=== PATIENT | female | born 1970 | race Caucasian/White ===

== ENCOUNTER → 2017-12-24 13:10 | Outpatient (POV) | payer BC, SELFPAY | PROVIDERS: Visit Provider Physician Assistant | DX: Z00.00 Encounter for general adult medical examination without abnormal findings (principal) ==

== ENCOUNTER → 2018-10-30 15:59 | Outpatient (CLI) | payer BC, SELFPAY ==
--- NOTE | 2018-10-30 16:02 | MM_ITS ---
MM Dig screening mamm BI w/CAD CAD Screening COMPARISON: Digital mammograms with CAD 08/24/2015 and 12/13/2016 INDICATION: There is been previous breast reduction surgery bilaterally. There is no personal or family history of breast cancer TECHNIQUE: Standard CC and MLO images were obtained. R2 CAD reviewed. FINDINGS: Moderate scattered fiber glandular densities are seen in both breast primarily upper outer quadrants. There is no suspicious lesion and no suspicious microcalcifications. IMPRESSION: Fibrofatty parenchyma no suspicious lesion seen BI-RADS Category: 1 Negative RECOMMENDED FOLLOW-UP: 1YR - 1 YEAR FOLLOW-UP (A letter has been sent to the patient regarding results of the study.)
== END ==
PROVIDERS: PCP Internal Medicine Adolescent Medicine; Visit Provider Obstetrics & Gynecology
DX: Z12.31 Encounter for screening mammogram for malignant neoplasm of breast (principal)
CPT/HCPCS: 77067

== ENCOUNTER → 2018-12-26 12:47 | Outpatient (CLI) | payer BC, SELFPAY ==
--- NOTE | 2018-12-26 12:55 | XR_ITS ---
XR DEXA axial skeleton HISTORY: ITS.REASON: SCREENING ORDERING PHYSICIAN: Herbert Fernandez MD PATIENT AGE: 48 years COMPARISON: None FINDINGS: The BMD measured at the AP Spine L1-L4 is 1.131 g/cm squared with a T score of -0.4. This is considered Normal according to the World Health Organization criteria. Fracture risk is Low. Treatment is advised. Main hip density has a T score of 0.8 which is within normal limits. IMPRESSION: Normal bone density with low fracture risk. Recommend follow-up exam December 2020
== END ==
PROVIDERS: PCP Internal Medicine Adolescent Medicine; Visit Provider Obstetrics & Gynecology
DX: Z78.0 Asymptomatic menopausal state (principal)
CPT/HCPCS: 77080

== ENCOUNTER → 2018-12-31 15:35 | Outpatient (POV) | payer BC, SELFPAY | PROVIDERS: Visit Provider Dermatology | DX: Z00.00 Encounter for general adult medical examination without abnormal findings (principal) ==

== ENCOUNTER → 2020-03-18 10:39 | Outpatient (CLI) | payer OTHER, BC, SELFPAY ==
--- NOTE | 2020-03-18 10:44 | XR_ITS ---
PROCEDURE: XR HAND RT MIN 3V CLINICAL INDICATION: RT THUMB PAIN COMPARISON: No exams were available for comparison FINDINGS: No fracture or dislocation. No lytic or blastic change. There is normal mineralization. The joint spaces are well-preserved. No significant degenerative/arthritic changes. No erosive changes evident. Other findings:None. IMPRESSION: No acute findings. Dictated b Damián Mckeon MD 03/18/2020 11:28 Damián Mckeon MD in [facility] 03/18/2020 11:28
== END ==
PROVIDERS: PCP Nurse Practitioner Family; Visit Provider Nurse Practitioner Family
DX: M79.644 Pain in right finger(s) (principal)
CPT/HCPCS: 73130

== ENCOUNTER 2020-05-20 15:00 | Outpatient (RCR) | payer OTHER, BC, SELFPAY ==
--- NOTE | 2020-04-14 11:00 | HMH.OTOPEV ---
OT Inpatient Evaluation Rehab OT Outpatient Eval Start: 04/14/20 10:30 Freq: Status: Active Protocol: Document 04/14/20 10:31 MAYE (Rec: 04/14/20 11:00 MAYE [id number]) Electronically Signed By Coty Jj OT 04/14/20 10:31 Outpatient Therapy Subjective History Subjective History 50 year old female referred to OP OT services after carrying heavy bag and hyperextended R thumb on March 17. Patient referred dx is sprain of interphalangeal joint of right thumb. x-ray completed on with no findings. Patient verbalize wearing a R thumb spica splitn for the past 2 weeks 26/02 to decrease swelling and pain. Patient verbalize only wearing splint at night. Patient continues to verbalize aching and numbness at tip of thumb with slight swelling. Chief Complaint Pain,Swelling,Decreased Facilities Custodian Strength Symptom Type Ache,Throb,Numbness,Tingling Symptoms Relieved By Ice,OTC Meds Symptoms Aggravated By Physical Activity,Lifting Prior Functional Limitations None Current Functional Limitations Lifting,Desk Work/Reading Symptom Description Constant and Continuous Level of pain today (0-10) 4 Pain scale - at its best (0-10) 4 Pain scale - at its worst (0-10) 7 Wrist/Hand Eval Thumb Range of Motion Right Thumb Metacarpophalangeal Flexion Active 50 Range of Motion (degrees) Thumb Metacarpophalangeal Extension 0 Active Range of Motion (degrees) Thumb Palmar Abduction (Carpometacarpal 40 Flex) Active Range (degrees) Thumb Radial Abduction (Carpometacarpal 40 Extens) Active Range (degrees) Thumb Interphalangeal Flexion Passive 50 Range of Motion (degrees) Facilities Custodian/Pinch Strength Right Facilities Custodian Strength Measurement (lbs) 20 Lateral Pinch Ability Minimal Impairment Lateral Pinch Strength Measurement (lbs) 4 Left Facilities Custodian Strength Measurement (lbs) 45 Lateral Pinch Ability Normal Performance Lateral Pinch Strength Measurement (lbs) 8 OT Outpatient Assessment Impairments Problems/Impairments Palpation Tenderness,Impaired Range of Motion,Impaired Strength,Impaired Household Care,Impaired Work Activities, Increased Edema,Subjective C/O Pain Pro
== END 2020-05-20 15:05 | disposition home or self-care (01) ==
LOC: OT 15:00
PROVIDERS: PCP Nurse Practitioner Family; Visit Provider Nurse Practitioner Family
DX: S63.6 Other and unspecified sprain of finger(s) (principal)
CPT/HCPCS: 97010; 97014; 97035; 97110; 97140; 97165; G0283

== ENCOUNTER → 2020-06-22 15:35 | Outpatient (CLI) | payer BC, SELFPAY ==
[2020-06-22 16:12] LABS: Basophils # 0.1 K/mm3 (0-0.2); Basophils % 0.9 % (0.1-2.0); Eosinophils # 0.2 K/mm3 (0.0-0.4); Eosinophils % 2.6 % (0.1-12.0); Hematocrit 44.9 % (37.0-47.0); Hemoglobin 15.6 g/dL (12.2-16.2); Lymphocytes % 32.3 % (10-50); Mean Corpuscular HGB Conc 34.7 g/dL (31.8-35.4); Mean Corpuscular Hemoglobin 32.2 pg (27.0-31.2); Mean Platelet Volume 8.6 fl (7.4-10.4); Monocytes # 0.4 K/mm3 (0.1-1.0); Monocytes % 6.3 % (1.7-9.3); Neutrophils # 3.5 K/mm3 (1.8-7.8); Neutrophils % 57.9 % (37.0-80.0); Platelet Count 227 K/mm3 (142-424); Red Blood Count 4.83 M/mm3 (4.20-5.40); Red Cell Distribution Width 14.2 % (11.5-17.5)
[2020-06-22 16:35] LABS: Alanine Aminotransferase 28 U/L (12-78); Albumin Level 4.8 g/dl (3.5-5.0); Albumin/Globulin Ratio 1.3 (1.1-1.8); Alkaline Phosphatase 145 U/L (38-126); Anion Gap 16.1 mEq/L (5-15); Aspartate Amino Transferase 37 U/L (14-36); Bilirubin,Total 0.6 mg/dl (0.2-1.3); Blood Urea Nitrogen 12 mg/dl (7-17); Calcium 9.9 mg/dl (8.4-10.2); Carbon Dioxide 28 mmol/L (22.0-30.0); Chloride 101 mmol/L (98-107); Chol/HDL Ratio 5.6 (1-3.5); Cholesterol 257 mg/dl (140-200); Estimated Glomerular Filt Rate 89 ml/min (>60); GFR (African American) 108 ML/MIN (>60); Globulin 3.8 g/dL (1.3-3.2); Glucose 96 mg/dl (74-100); HDL Cholesterol 46 mg/dl (40-60); Potassium 5.1 mmoL/L (3.5-5.1); Sodium 140 mmol/L (136-145); Total Protein,Serum 8.6 g/dl (6.3-8.2)
[2020-06-22 16:36] LABS: Triglycerides 468 mg/dl (30-150)
[2020-06-22 16:47] LABS: Direct LDL Cholesterol 145.03 mg/dL (100-129)
[2020-06-22 16:51] LABS: 25-OH Vitamin D, Total 26.1 ng/mL (30-100)
[2020-06-22 17:05] LABS: Thyroid Stimulating Hormone 0.86 uIU/mL (0.465-4.68)
== END ==
PROVIDERS: Visit Provider Emergency Medicine
DX: E66.9 Obesity, unspecified (principal); E55.9 Vitamin D deficiency, unspecified; Z68.30 Body mass index [BMI] 30.0-30.9, adult
CPT/HCPCS: 80053; 80061; 82306; 84439; 84443; 85025

== ENCOUNTER → 2020-07-05 16:39 | Outpatient (CLI) | payer BC, SELFPAY ==
[2020-07-05 16:42] LABS: Microscopic, Urine URINE MICROSCOPIC (MICROSCOPIC)
[2020-07-05 17:52] LABS: Prothrombin Time 10.7 seconds (9.4-11.8)
[2020-07-05 17:53] LABS: Activated Partial Thrombo Time 22.5 seconds (23.6-34.0); INR 0.96 (0.9-1.1)
[2020-07-05 18:04] LABS: Basophils % 0.6 % (0.1-2.0); Eosinophils # 0.2 K/mm3 (0.0-0.4); Eosinophils % 2.7 % (0.1-12.0); Hematocrit 40.4 % (37.0-47.0); Hemoglobin 13.5 g/dL (12.2-16.2); Lymphocytes # 1.9 K/mm3 (0.7-4.5); Lymphocytes % 27.3 % (10-50); Mean Corpuscular HGB Conc 33.3 g/dL (31.8-35.4); Mean Corpuscular Hemoglobin 31.2 pg (27.0-31.2); Mean Corpuscular Volume 93.7 fl (81-99); Mean Platelet Volume 10.4 fl (7.4-10.4); Monocytes # 0.5 K/mm3 (0.1-1.0); Monocytes % 6.3 % (1.7-9.3); Neutrophils # 4.5 K/mm3 (1.8-7.8); Neutrophils % 63.1 % (37.0-80.0); Platelet Count 251 K/mm3 (142-424); Red Blood Count 4.31 M/mm3 (4.20-5.40); Red Cell Distribution Width 14.5 % (11.5-17.5); White Blood Count 7.1 K/mm3 (4.8-10.8)
[2020-07-05 18:13] LABS: Appearance,Urine CLEAR (Clear); Bilirubin,Urine Negative (Negative); Blood, Urine TRACE-I (Negative); Color,Urine YELLOW (Yellow); Glucose,Urine (UA) Negative (Negative); Ketones,Urine Negative (Negative); Leukocyte Esterase,Urine 2+ (Negative); Nitrate,Urine Negative (Negative); Protein,Urine Negative (Negative); Specific Gravity, Urine 1.025 (1.005-1.030); Urobilinogen,Urine 0.2 EU/dl (0.2)
[2020-07-05 18:26] LABS: Bacteria,Urine 1+ /lpf; RBC,Urine Occasional #/hpf (0-3)
[2020-07-05 19:03] LABS: Erythrocyte Sedimentation Rate 82 mm/hr (0-20)
[2020-07-05 20:43] LABS: Chloride 103 mmol/L (98-107); Potassium 4.7 mmoL/L (3.5-5.1); Sodium 140 mmol/L (136-145)
[2020-07-05 20:45] LABS: Alanine Aminotransferase 38 U/L (12-78); Alkaline Phosphatase 127 U/L (38-126); Anion Gap 13.7 mEq/L (5-15); Aspartate Amino Transferase 38 U/L (14-36); Bilirubin,Total 0.5 mg/dl (0.2-1.3); Blood Urea Nitrogen 9 mg/dl (7-17); Carbon Dioxide 28 mmol/L (22.0-30.0); Estimated Glomerular Filt Rate 89 ml/min (>60); GFR (African American) 108 ML/MIN (>60)
[2020-07-05 20:46] LABS: Albumin Level 4.5 g/dl (3.5-5.0); Albumin/Globulin Ratio 1.4 (1.1-1.8); Calcium 9.7 mg/dl (8.4-10.2); Globulin 3.3 g/dL (1.3-3.2); Glucose 106 mg/dl (74-100); Total Protein,Serum 7.8 g/dl (6.3-8.2)
[2020-07-05 20:51] LABS: Coronavirus 19 IgG Antibody Negative (Negative); Coronavirus 19 IgM Antibody Negative (Negative)
[2020-07-05 20:52] LABS: C-Reactive Protein 8.8 mg/L (0-4)
[2020-07-07 10:42] LABS: Hep A Ab, IgM Negative (Negative); Hepatitis B Core Antibody IgM Negative (Negative); Hepatitis B Surface Antigen Negative (Negative)
[2020-07-07 19:20] LABS: Hepatitis C Antibody <0.1 s/co ratio (0.0-0.9)
[2020-07-08 00:08] LABS: RMSF, IgG, EIA Negative (Negative)
[2020-07-08 12:14] LABS: Rocky Mtn Spotted Fever, IgM 0.35 index (0.00-0.89)
== END ==
PROVIDERS: Visit Provider Internal Medicine Adolescent Medicine
DX: Z03.818 Encounter for observation for suspected exposure to other biological agents ruled out (principal); D69.0 Allergic purpura; I77.6 Arteritis, unspecified
CPT/HCPCS: 36415; 80053; 80074; 81001; 85025; 85610; 85651; 85730; 86140; 86328; 86609; 87086

== ENCOUNTER → 2021-01-28 08:40 | Outpatient (CLI) | payer BC, SELFPAY ==
--- NOTE | 2021-01-28 08:40 | MM_ITS ---
PROCEDURE INFORMATION: Exam: MG Screening 3D Mammography Exam date and time: 01/28/2021 8:40 AM Age: 50 years old Clinical indication: Encounter for screening mammogram for malignant neoplasm of breast TECHNIQUE: Imaging protocol: Screening tomosynthesis and 2D mammography including computer-aided detection (CAD) when performed. COMPARISON: 1. MG SCBI MM Dig screening mamm BI w/CAD 10/30/2018 4:12 PM 2. MG DMSB DIG MAMM-SCREEN LUIS DANIEL W/CAD 12/13/2016 8:33 AM 3. MG DMSB DIG MAMM-SCREEN LUIS DANIEL 08/24/2015 4:09 PM FINDINGS: MAMMOGRAPHY: Breast composition: The breasts are heterogeneously dense, which may obscure small masses. Mass: No new suspicious masses. Architectural distortion: No suspicious distortion. Post reduction changes noted bilaterally Calcifications: No suspicious calcifications. Asymmetric density: None. Skin thickening: None. Axillary adenopathy: None. IMPRESSION: No mammographic evidence of malignancy. Annual screening is recommended unless otherwise clinically indicated. ASSESSMENT: BI-RADS Category 2: Benign
== END ==
PROVIDERS: PCP Internal Medicine Adolescent Medicine; Visit Provider Obstetrics & Gynecology
DX: Z12.31 Encounter for screening mammogram for malignant neoplasm of breast (principal)
CPT/HCPCS: 77063; 77067

== ENCOUNTER → 2021-02-17 07:52 | Outpatient (CLI) | payer BC, SELFPAY ==
[2021-02-17 08:17] LABS: Basophils % 0.9 % (0.1-2.0); Eosinophils # 0.1 K/mm3 (0.0-0.4); Eosinophils % 2.9 % (0.1-12.0); Hematocrit 43.3 % (37.0-47.0); Hemoglobin 14.3 g/dL (12.2-16.2); Lymphocytes # 1.3 K/mm3 (0.7-4.5); Lymphocytes % 27.8 % (10-50); Mean Corpuscular HGB Conc 32.9 g/dL (31.8-35.4); Mean Corpuscular Hemoglobin 30.5 pg (27.0-31.2); Mean Corpuscular Volume 92.6 fl (81-99); Mean Platelet Volume 7.7 fl (7.4-10.4); Monocytes # 0.4 K/mm3 (0.1-1.0); Monocytes % 8.3 % (1.7-9.3); Neutrophils # 2.8 K/mm3 (1.8-7.8); Neutrophils % 60.1 % (37.0-80.0); Platelet Count 177 K/mm3 (142-424); Red Blood Count 4.68 M/mm3 (4.20-5.40); Red Cell Distribution Width 13.5 % (11.5-17.5); White Blood Count 4.6 K/mm3 (4.8-10.8)
[2021-02-17 08:27] LABS: Hemoglobin A1C 4.8 % (4.0-6.0)
[2021-02-17 08:39] LABS: Erythrocyte Sedimentation Rate 21 mm/hr (0-20)
[2021-02-17 08:44] LABS: Alanine Aminotransferase 28 U/L (12-78); Albumin Level 4.7 g/dl (3.5-5.0); Albumin/Globulin Ratio 1.3 (1.1-1.8); Alkaline Phosphatase 100 U/L (38-126); Anion Gap 14.8 mEq/L (5-15); Aspartate Amino Transferase 32 U/L (14-36); Bilirubin,Total 0.9 mg/dl (0.2-1.3); Blood Urea Nitrogen 13 mg/dl (7-17); Calcium 9.7 mg/dl (8.4-10.2); Carbon Dioxide 31 mmol/L (22.0-30.0); Chloride 100 mmol/L (98-107); Chol/HDL Ratio 5.3 (1-3.5); Cholesterol 269 mg/dl (140-200); Estimated Glomerular Filt Rate 67 ml/min (>60); GFR (African American) 81 ML/MIN (>60); Globulin 3.5 g/dL (1.3-3.2); Glucose 110 mg/dl (74-100); HDL Cholesterol 51 mg/dl (40-60); Potassium 4.8 mmoL/L (3.5-5.1); Sodium 141 mmol/L (136-145); Total Protein,Serum 8.2 g/dl (6.3-8.2); Triglycerides 238 mg/dl (30-150); VLDL Cholesterol 48 mg/dL (0-40)
[2021-02-17 08:55] LABS: C-Reactive Protein 6.1 mg/L (0-4); Direct LDL Cholesterol 170.13 mg/dL (100-129)
== END ==
PROVIDERS: Visit Provider Internal Medicine Adolescent Medicine
DX: Z00.00 Encounter for general adult medical examination without abnormal findings (principal); I77.6 Arteritis, unspecified
CPT/HCPCS: 36415; 80053; 80061; 83036; 85025; 85651; 86140

== ENCOUNTER → 2021-12-13 17:27 | Outpatient (CLI) | payer BC, SELFPAY ==
[2021-12-13 18:18] LABS: Chloride 104 mmol/L (98-107); Potassium 4.1 mmoL/L (3.5-5.1); Sodium 138 mmol/L (136-145)
[2021-12-13 18:19] LABS: Basophils # 0.1 K/mm3 (0-0.2); Basophils % 1.8 % (0.1-2.0); Eosinophils # 0.3 K/mm3 (0.0-0.4); Hematocrit 41.4 % (37.0-47.0); Hemoglobin 14.2 g/dL (12.2-16.2); Lymphocytes # 2.3 K/mm3 (0.7-4.5); Lymphocytes % 29.9 % (10-50); Mean Corpuscular HGB Conc 34.4 g/dL (31.8-35.4); Mean Corpuscular Hemoglobin 31.9 pg (27.0-31.2); Mean Platelet Volume 7.9 fl (7.4-10.4); Monocytes # 0.6 K/mm3 (0.1-1.0); Monocytes % 7.9 % (1.7-9.3); Neutrophils # 4.3 K/mm3 (1.8-7.8); Neutrophils % 56.4 % (37.0-80.0); Platelet Count 230 K/mm3 (142-424); Red Blood Count 4.45 M/mm3 (4.20-5.40); Red Cell Distribution Width 13.9 % (11.5-17.5); White Blood Count 7.6 K/mm3 (4.8-10.8)
[2021-12-13 18:20] LABS: Alanine Aminotransferase 29 U/L (12-78); Aspartate Amino Transferase 30 U/L (14-36); Blood Urea Nitrogen 5 mg/dl (7-17); Estimated Glomerular Filt Rate 106 ml/min (>60); GFR (African American) 128 ML/MIN (>60)
[2021-12-13 18:21] LABS: Albumin Level 4.1 g/dl (3.5-5.0); Albumin/Globulin Ratio 1.2 (1.1-1.8); Alkaline Phosphatase 103 U/L (38-126); Anion Gap 12.1 mEq/L (5-15); Bilirubin,Total 0.8 mg/dl (0.2-1.3); Carbon Dioxide 26 mmol/L (22.0-30.0); Globulin 3.3 g/dL (1.3-3.2); Glucose 119 mg/dl (74-100); Total Protein,Serum 7.4 g/dl (6.3-8.2)
== END ==
PROVIDERS: PCP Internal Medicine Adolescent Medicine; Visit Provider Internal Medicine Adolescent Medicine
DX: R10.9 Unspecified abdominal pain (principal); R19.7 Diarrhea, unspecified
CPT/HCPCS: 80053; 85025

== ENCOUNTER → 2021-12-14 07:50 | Outpatient (CLI) | payer BC, SELFPAY ==
[2021-12-14 07:54] LABS: Adenovirus F 40/41, stool Not Detected (NotDetected); Astrovirus Not Detected (NotDetected); Campylobacter Not Detected (NotDetected); Cryptosporidium Not Detected (NotDetected); Cyclospora Cayetanesis Not Detected (NotDetected); Entamoeba histolytica Not Detected (NotDetected); Enteroaggregative E coli Not Detected (NotDetected); Enteropathogenic E coli Not Detected (NotDetected); Enterotoxigenic E coli Not Detected (NotDetected); Giardia lamblia Not Detected (NotDetected); Norovirus Not Detected (NotDetected); Plesimonas Shigalloides, PCR Not Detected (NotDetected); Rotavirus A Not Detected (NotDetected); Salmonella, PCR Not Detected (NotDetected); Sapovirus Not Detected (NotDetected); Shiga-like toxin E coli Not Detected (NotDetected); Shigella Enterovasive E coli Not Detected (NotDetected); Vibrio Cholerae Not Detected (NotDetected); Vibrio, PCR Not Detected (NotDetected); Yersinia Entercolitica, PCR Not Detected (NotDetected)
[2021-12-14 17:44] LABS: Clostridium Difficile A/B, PCR Detected (NotDetected)
[2021-12-20 17:58] LABS: Lactoferrin, Fecal, Quant. 147.93 ug/mL(g) (0.00-7.24)
== END ==
PROVIDERS: Visit Provider Internal Medicine Adolescent Medicine
DX: R10.9 Unspecified abdominal pain (principal); R19.7 Diarrhea, unspecified; A04.72 Enterocolitis due to Clostridium difficile, not specified as recurrent
CPT/HCPCS: 83630; 87507

== ENCOUNTER → 2022-03-27 16:28 | Outpatient (CLI) | payer BC, SELFPAY ==
--- NOTE | 2022-03-27 16:32 | MM_ITS ---
PROCEDURE INFORMATION: Exam: MG Bilateral Screening 3D Mammography Exam date and time: 03/27/2022 4:25 PM Age: 52 years old Clinical indication: Screening. No family history of breast cancer. TECHNIQUE: Imaging protocol: Bilateral Screening tomosynthesis and 2D mammography including computer-aided detection (CAD) when performed. COMPARISON: 1. MG MM DIG SCREENING MAMM BI W/CAD 01/28/2021 8:42 AM 2. MG SCBI MM Dig screening mamm BI w/CAD 10/30/2018 4:12 PM 3. MG DMSB DIG MAMM-SCREEN LUIS DANIEL W/CAD 12/13/2016 8:33 AM 4. MG DMSB DIG MAMM-SCREEN LUIS DANIEL 08/24/2015 4:09 PM FINDINGS: MAMMOGRAPHY: Breast composition: The breasts are heterogeneously dense, which may obscure small masses. Mass: None. Architectural distortion: Stable diffuse bilateral architectural distortion with history of reduction mammoplasty. No suspicious architectural distortion. Calcifications: No suspicious calcifications. Asymmetric density: None. Skin thickening: None. Axillary adenopathy: None. IMPRESSION: No mammographic evidence of malignancy. Annual screening is recommended unless otherwise clinically indicated. ASSESSMENT: BI-RADS Category 2: Benign
== END ==
PROVIDERS: PCP Internal Medicine Adolescent Medicine; Visit Provider Nurse Practitioner Obstetrics & Gynecology
DX: Z12.31 Encounter for screening mammogram for malignant neoplasm of breast (principal)
CPT/HCPCS: 77063; 77067

== ENCOUNTER → 2022-10-26 12:57 | Outpatient (CLI) | payer BC, SELFPAY ==
--- NOTE | 2022-10-26 13:07 | XR_ITS ---
FINAL REPORT CLINICAL HISTORY: RT FOOT PAIN,SWELLING FINDINGS: RIGHT FOOT 3 views of the right foot were obtained. There is no acute fracture or dislocation. Visualized joint spaces are normally aligned. Soft tissues are unremarkable. IMPRESSION: No acute bony abnormality. Reviewed, Interpreted and Dictated by Tom Caceres MD Transcribed by Munira Castorena Authenticated and [facility]
== END ==
PROVIDERS: PCP Internal Medicine Adolescent Medicine; Visit Provider Nurse Practitioner Family
DX: M79.671 Pain in right foot (principal); M79.89 Other specified soft tissue disorders
CPT/HCPCS: 73630

== ENCOUNTER → 2022-10-28 09:39 | Outpatient (CLI) | payer BC, SELFPAY ==
[2022-10-28 11:14] LABS: Basophils # 0.1 K/mm3 (0-0.2); Eosinophils # 0.3 K/mm3 (0.0-0.4); Eosinophils % 4.3 % (0.1-12.0); Hematocrit 43.4 % (37.0-47.0); Hemoglobin 14.6 g/dL (12.2-16.2); Lymphocytes # 1.5 K/mm3 (0.7-4.5); Lymphocytes % 25.3 % (10-50); Mean Corpuscular HGB Conc 33.7 g/dL (31.8-35.4); Mean Corpuscular Hemoglobin 30.8 pg (27.0-31.2); Mean Corpuscular Volume 91.4 fl (81-99); Mean Platelet Volume 8.6 fl (7.4-10.4); Monocytes # 0.4 K/mm3 (0.1-1.0); Monocytes % 6.5 % (1.7-9.3); Neutrophils # 3.7 K/mm3 (1.8-7.8); Neutrophils % 62.8 % (37.0-80.0); Platelet Count 250 K/mm3 (142-424); Red Blood Count 4.75 M/mm3 (4.20-5.40); Red Cell Distribution Width 13.8 % (11.5-17.5); White Blood Count 5.8 K/mm3 (4.8-10.8)
[2022-10-28 11:30] LABS: Hemoglobin A1C 4.8 % (4.0-6.0)
[2022-10-28 11:50] LABS: Alanine Aminotransferase 23 U/L (12-78); Albumin Level 4.5 g/dl (3.5-5.0); Albumin/Globulin Ratio 1.3 (1.1-1.8); Alkaline Phosphatase 114 U/L (38-126); Anion Gap 12.8 mEq/L (5-15); Aspartate Amino Transferase 26 U/L (14-36); Bilirubin,Total 0.7 mg/dl (0.2-1.3); Blood Urea Nitrogen 12 mg/dl (7-17); Calcium 9.3 mg/dl (8.4-10.2); Carbon Dioxide 28 mmol/L (22.0-30.0); Chloride 101 mmol/L (98-107); Chol/HDL Ratio 4.8 (1-3.5); Cholesterol 271 mg/dl (140-200); Estimated Glomerular Filt Rate 88 ml/min (>60); GFR (African American) 107 ML/MIN (>60); Globulin 3.4 g/dL (1.3-3.2); Glucose 104 mg/dl (74-100); HDL Cholesterol 56 mg/dl (40-60); Potassium 4.8 mmoL/L (3.5-5.1); Sodium 137 mmol/L (136-145); Total Protein,Serum 7.9 g/dl (6.3-8.2); Triglycerides 212 mg/dl (30-150); Uric Acid 8.5 mg/dl (2.5-6.2); VLDL Cholesterol 42 mg/dL (0-40)
[2022-10-28 12:01] LABS: Direct LDL Cholesterol 173.42 mg/dL (100-129)
[2022-10-28 12:22] LABS: Thyroid Stimulating Hormone 1.19 uIU/mL (0.465-4.68)
== END ==
PROVIDERS: PCP Internal Medicine Adolescent Medicine; Visit Provider Nurse Practitioner Family
DX: Z00.00 Encounter for general adult medical examination without abnormal findings (principal); R53.83 Other fatigue; R73.9 Hyperglycemia, unspecified; M79.671 Pain in right foot; M79.89 Other specified soft tissue disorders
CPT/HCPCS: 36415; 80053; 80061; 83036; 84443; 84550; 85025

== ENCOUNTER → 2023-03-27 15:40 | Outpatient (POV) | payer BC, SELFPAY | PROVIDERS: Visit Provider Dermatology | DX: Z00.00 Encounter for general adult medical examination without abnormal findings (principal) ==

== ENCOUNTER → 2023-04-23 09:00 | Outpatient (CLI) | payer BC, SELFPAY | PROVIDERS: PCP Nurse Practitioner Family; Visit Provider Nurse Practitioner Family | DX: J02.9 Acute pharyngitis, unspecified (principal); R51.9 Headache, unspecified; H92.03 Otalgia, bilateral; R50.9 Fever, unspecified | CPT/HCPCS: 87635 ==

== ENCOUNTER → 2023-05-09 15:05 | Outpatient (CLI) | payer BC, SELFPAY ==
--- NOTE | 2023-05-09 15:06 | MM_ITS ---
PROCEDURE INFORMATION: Exam: MG Bilateral Screening 3D Mammography Exam date and time: 05/09/2023 3:12 PM Age: 53 years old Clinical indication: Screening mammogram. No personal or family history of breast cancer TECHNIQUE: Imaging protocol: Bilateral Screening tomosynthesis and 2D mammography including computer-aided detection (CAD) when performed. COMPARISON: 1. MG MM DIG SCREENING MAMM BI W/CAD 03/27/2022 4:25 PM 2. MG MM DIG SCREENING MAMM BI W/CAD 01/28/2021 8:42 AM 3. MG SCBI MM Dig screening mamm BI w/CAD 10/30/2018 4:12 PM 4. MG DMSB DIG MAMM-SCREEN LUIS DANIEL W/CAD 12/13/2016 8:33 AM FINDINGS: MAMMOGRAPHY: Breast composition: The breast is heterogeneously dense, which may obscure small masses. Mass: None. Architectural distortion: No new or suspicious architectural distortion. Calcifications: No new or suspicious calcifications are present Asymmetric density: No new or suspicious asymmetric density is present Skin thickening: None. Axillary adenopathy: None. IMPRESSION: No mammographic evidence of malignancy. Recommend annual screening mammography unless otherwise clinically indicated. ASSESSMENT: BI-RADS category 1: Negative
== END ==
PROVIDERS: PCP Nurse Practitioner Family; Visit Provider Nurse Practitioner Obstetrics & Gynecology
DX: Z12.31 Encounter for screening mammogram for malignant neoplasm of breast (principal)
CPT/HCPCS: 77063; 77067

== ENCOUNTER 2024-12-16 15:55 | Outpatient (CLI) | payer BC, SELFPAY ==
--- NOTE | 2024-12-16 15:58 | MM_ITS ---
PROCEDURE INFORMATION: Exam: MG Bilateral Screening 3D Mammography Exam date and time: 12/16/2024 4:02 PM Age: 54 years old Clinical indication: Screening mammogram TECHNIQUE: Imaging protocol: Bilateral Screening tomosynthesis and 2D mammography including computer-aided detection (CAD) when performed. COMPARISON: 1. MG MM DIG SCREENING MAMM BI W/CAD 05/09/2023 3:12 PM 2. MG MM DIG SCREENING MAMM BI W/CAD 03/27/2022 4:25 PM 3. MG MM DIG SCREENING MAMM BI W/CAD 01/28/2021 8:42 AM 4. MG SCBI MM Dig screening mamm BI w/CAD 10/30/2018 4:12 PM FINDINGS: MAMMOGRAPHY: Breast composition: There are scattered areas of fibroglandular density. Mass: None. Architectural distortion: No new or suspicious architectural distortion. Calcifications: No new or suspicious calcifications are present Asymmetric density: No new or suspicious asymmetric density is present Skin thickening: None. Axillary adenopathy: None. IMPRESSION: No mammographic evidence of malignancy. Recommend annual screening mammography unless otherwise clinically indicated. ASSESSMENT: BI-RADS category 1: Negative.
== END 2024-12-16 23:59 | disposition home or self-care (01) ==
LOC: RAD 15:55
PROVIDERS: PCP Nurse Practitioner Family; Visit Provider Nurse Practitioner Family
DX: Z12.31 Encounter for screening mammogram for malignant neoplasm of breast (principal)
CPT/HCPCS: 77063; 77067

== ENCOUNTER 2025-01-18 23:22 | Emergency (ER) | payer BC, SELFPAY ==
--- OUTSIDE RECORDS SUMMARY | 2024-11-08 17:30 | XMS_ITS ---
Author Organization [facility] Address [address] [place] [address] Care Team Providers Care What Job Titles Mean Name Role Phone Gregory Sage Primary Care Provider Migration, Provider Unavailable Unavailable Allergies Allergen (clinical drug ingredient) Drug/Non Drug Allergy documented on EMR Reaction Allergy Type Onset Date Status GENERIC BUPROPRION (uncoded) Unknown Allergy Active morphine Morphine Unknown Drug Allergy Active Penicillin Unknown Drug Allergy Active [facility] Conversion Encounter Medications Medication SIG (Take, Route, Frequency, Duration) Notes Start Date End Date Status Propranolol HCl 20 MG 1 tab(s) orally 2 times a day for 30 day(s) Active WEGOVY (1.7 MG DOSE) 1.7 MG/0.75 ML (1.7 MG DOSE) 1.7MG SUBCUTANEOUSLY ONCE A WEEK for 30 DAYS *Please review for potential replacement for e-prescription and drug interaction check* 06/10/2024 Active valACYclovir HCl 1 GM 2 tab(s) orally 2 times a day for 1 days prn 05/09/2022 Active Montelukast Sodium 10 MG 1 tab(s) orally once a day at bedtime for 30 day(s) 09/14/2022 Active Flonase Allergy Relief 50 MCG/ACT as directed in each nostril once a day for 30 day(s) prn 05/09/2022 Active Levocetirizine Dihydrochloride 5 MG 1 tab(s) orally once a day (in the evening) for 30 day(s) 05/09/2022 Active Rosuvastatin Calcium 20 MG 1 tab(s) orally once a day at bedtime for 30 days 05/28/2024 Active Encounters Encounter Location Date Provider Diagnosis [facility] [address] [place] [address] 11/08/2024 Provider Migration Fever blister B00.1 and Pre-hypertension R03.0 Assessments Encounter Date Diagnosis (ICD Code) Assessment Notes Treatment Notes Treatment Clinical Notes Section Notes 11/08/2024 Fever blister (ICD-10 - B00.1) 11/08/2024 Pre-hypertensio n (ICD-10 - R03.0) Plan Of Treatment Medication Medication Name Sig Start Date Stop Date Notes Propranolol HCl 20 MG 1 tab(s) orally 2 times a day for 30 day(s) WEGOVY (1.7 MG DOSE) 1.7 MG/0.75 ML (1.7 MG DOSE) 1.7MG SUBCUTANEOUSLY ONCE A WEEK for 30 DAYS 06/10/2024 *Please review f or potential replacement for e-prescription and drug interaction check* valACYclovir HCl 1 GM 2 tab(s) orally 2 times a day for 1 days 05/09/2022 prn Rosuvastatin Calcium 20 MG 1 tab(s) orally once a day at bedtime for 30 days 05/28/2024 Progress Notes * Abigail MCKEEDOB: 1 (54 yo F)Acc No.[id number]:11/08/2024 Patient: Abigail FLORES Provider: Brenda lugo Migration :1970 A ge:54 Y S ex:Female Date:11/08/2024 Address:[address] [place] [address] [place], [id number] Pcp:Gregory Sage Subjective: * Chief Complaints: * 1 . [facility] Conversion Encounter. * Medical History: * Medications: T aking Levocetirizine Dihydrochloride 5 MG Tablet 1 tab(s) orally once a day (in the evening) , Taking Flonase Allergy Relief 50 MCG/ACT Suspension as directed in each nostril once a day , Notes to Pharmacist: prn, Taking Montelukast Sodium 10 MG Tablet 1 tab(s) orally once a day at bedtime * Allergies: P enicillin, Morphine, GENERIC BUPROPRION. Objective: * Vitals: Assessment: * Assessment: 1. F ever blister - B00.1 2 . P re-hypertension - R03.0 Plan: * Treatment: 2. P re-hypertension Start Propranolol HCl Tablet, 20 MG, 1 tab(s), orally, 2 times a day, 30 day(s), 60, Refills 3.? 3. O thers Start Rosuvastatin Calcium Tablet, 20 MG, 1 tab(s), orally, once a day at bedtime, 30 days, 30, Refills 3; R efill WEGOVY (1.7 MG DOSE) SOLUTION, 1.7 MG/0.75 ML (1.7 MG DOSE), 1.7MG, SUBCUTANEOUSLY, ONCE A WEEK, 30 DAYS, 4, Refills 1, Notes to Pharmacist: *Please review for potential replacement for e-prescription and drug interaction check*. * * Electronic signature of Marilyn bates Migration on 01/18/2025 at 11:34 PM EDT Sign off status: Pending * Provider: Brenda lugo Migration Date: 0 11/08/2024 Generated for Kailey polanco/Rabia/Mayaitting on: 0 01/18/2025 11:34 PM EDT
--- OUTSIDE RECORDS SUMMARY | 2024-12-17 04:00 | XMS_ITS ---
Author Organization [facility] Address [address] [place] [address] Care Team Providers Care Renal Dietitian Name Role Phone Gregory Sage Primary Care Provider Yaneth Rossi [phone] REASON FOR VISIT Labs Encounters Encounter Location Date Provider Diagnosis [facility] [address] [place], [place] [address] 12/17/2024 Yaneth Rossi Plan Of Treatment No Information Progress Notes * Abigail MCKEEDOB: 1 (54 yo F)Acc No.[id number]:12/17/2024 LABS Patient: Abigail FLORES Provider: Hedy Rossi APRN :1970 A ge:54 Y S ex:Female Date:12/17/2024 Address:[address] [place] [address] [place], [id number] Pcp:Gregory Sage Subjective: * Chief Complaints: * 1 . Labs. * Medical History: Objective: * Vitals: Assessment: Plan: * Treatment: * * Electronic signature of Natalee Rossi APRN on 01/18/2025 at 11:34 PM EDT Sign off status: Pending * Provider: Hedy Rossi APRN Date: 0 12/17/2024 Generated for Printi ng/Rabia/Mayaitting on: 0 01/18/2025 11:34 PM EDT
--- OUTSIDE RECORDS SUMMARY | 2025-01-18 23:34 | XMS_ITS | Patient Health Record ---
Author Organization [facility] Address [address] [place] [address] Care Team Providers Care Agriscience Teacher Name Role Phone Gregory Sage Primary Care Provider Yaneth Rossi Unavailable [phone] Migration, Provider Unavailable Unavailable Allergies Allergen (clinical drug ingredient) Drug/Non Drug Allergy documented on EMR Reaction Allergy Type Onset Date Status GENERIC BUPROPRION (uncoded) Unknown Allergy Active morphine Morphine Unknown Drug Allergy Active Penicillin Unknown Drug Allergy Active Results Component Value Reference Range Notes Mammogram : Bilateral Reviewed date:12/23/2024 03:56:05 PM Interpretation: Performing Lab: Notes/Report: LIPID PANEL, STANDARD ([id number]) Reviewed date:12/18/2024 12:30:06 PM Interpretation: Performing Lab:CB, [facility] [id number] [facility], [facility]hwdLR[address] Alessio Epperson Notes/Report: NON-FASTING; NON-FASTING; NON-FASTING FASTING:YES FASTING: YES CHOLESTEROL, TOTAL 192 <200 mg/dL HDL CHOLESTEROL 64 > OR = 50 mg/dL TRIGLYCERIDES 173 <150 mg/dL LDL-CHOLESTEROL 101 Reference range: <100 Desirable range <100 mg/dL for primary prevention; <70 mg/dL for patients with CHD or diabetic patients with > or = 2 CHD risk factors. LDL-C is now calculated using the Glory calculation, which is a validated novel method providing better accuracy than the Friedewald equation in the estimation of LDL-C. Bradly BLOOM et al. SERAFIN. 2013;310(19): 1657-4208 (http://education.Acrolinx.Entertainment Magpie/faq/FAQ16 4) CHOL/HDLC RATIO 3.0 <5.0 (calc) NON HDL CHOLESTEROL 128 <130 mg/dL (calc) For patients with diabetes plus 1 major ASCVD risk factor, treating to a non-HDL-C goal of <100 mg/dL (LDL-C of <70 mg/dL) is considered a therapeutic option. COMPREHENSIVE METABOLIC PANE ([id number]) Reviewed date:12/18/2024 12:30:07 PM Interpretation: Performing Lab:BRIGHT, [facility] [facility] [id number], BizBragNnxgGZ[address] Alessio Epperson Notes/Report: NON-FASTING; NON-FASTING; NON-FASTING FASTING:YES FASTING: YES GLUCOSE 96 65-99 mg/dL Fasting reference interval UREA NITROGEN (BUN) 8 7-25 mg/dL CREATININE 0.59 0.50-1.03 mg/dL EGFR 108 > OR = 60 mL/min/1.73m2 BUN/CREATININE RATIO SEE NOTE: 6-22 (calc) Not Reported: BUN and Creatinine are within reference range. SODIUM 143 135-146 mmol/L POTASSIUM 3.8 3.5-5.3 mmol/L CHLORIDE 106 98-110 mmol/L CARBON DIOXIDE 24 20-32 mmol/L CALCIUM 9.4 8.6-10.4 mg/dL PROTEIN, TOTAL 7.6 6.1-8.1 g/dL ALBUMIN 4.4 3.6-5.1 g/dL GLOBULIN 3.2 1.9-3.7 g/dL (calc) ALBUMIN/GLOBULIN RATIO 1.4 1.0-2.5 (calc) BILIRUBIN, TOTAL 0.7 0.2-1.2 mg/dL ALKALINE PHOSPHATASE 80 37-153 U/L AST 18 10-35 U/L ALT 16 6-29 U/L VITAMIN D,25-OH,TOTAL,IA (17 306) Reviewed date:12/18/2024 12:30:07 PM Interpretation: Performing Lab:BRIGHT, [employer] [address], NileGuideVjliEH[address] Alessio Epperson Notes/Report: NON-FASTING; NON-FASTING; NON-FASTING FASTING:YES FASTING: YES VITAMIN D,25-OH,TOTAL,IA 29 30-100 ng/mL Vitamin D Status 25-OH Vitamin D: Deficiency: <20 ng/mL Insufficiency: 20 - 29 ng/mL Optimal: > or = 30 ng/mL For 25-OH Vitamin D testing on patients on D2-supplementation and patients for whom quantitation of D2 and D3 fractions is required, the QuestAssureD(TM) 25-OH VIT D, (D2,D3), LC/MS/MS is recommended: order code 07855 (patients >2yrs). See Note 1 Note 1 For additional information, please refer to http://Saylent Technologies.Mouth Party/faq/HFJ926 (This link is being provided for informational/ educational purposes only.) VITAMIN D,25-OH,TOTAL,IA (17 306) Reviewed date:05/28/2024 12:58:49 PM Interpretation: Performing Lab:[facility] [address], CouplewiseIseaWP[address] Alessio Epperson Notes/Report: NON-FASTING; NON-FASTING; NON-FASTING FASTING:YES FASTING: YES VITAMIN D,25-OH,TOTAL,IA 37 30-100 ng/mL Vitamin D Status 25-OH Vitamin D: Deficiency: <20 ng/mL Insufficiency: 20 - 29 ng/mL Optimal: > or = 30 ng/mL For 25-OH Vitamin D testing on patients on D2-supplementation and patients for whom quantitation of D2 and D3 fractions is required, the QuestAssureD(TM) 25-OH VIT D, (D2,D3), LC/MS/MS is recommended: order code [id number] (patients >2yrs). See Note 1 Note 1 For additional information, please refer to http://Saylent Technologies.Mouth Party/faq/WGP977 (This link is being provided for informational/ educational purposes only.) LIPID PANEL, STANDARD (7600) Reviewed date:05/28/2024 12:58:49 PM Interpretation: Performing Lab:BRIGHT [address], CouplewiseTjonSB[address] Alessio Epperson Notes/Report: NON-FASTING; NON-FASTING; NON-FASTING FASTING:YES FASTING: YES CHOLESTEROL, TOTAL 217 <200 mg/dL HDL CHOLESTEROL 52 > OR = 50 mg/dL TRIGLYCERIDES 134 <150 mg/dL LDL-CHOLESTEROL 139 Reference range: <100 Desirable range <100 mg/dL for primary prevention; <70 mg/dL for patients with CHD or diabetic patients with > or = 2 CHD risk factors. LDL-C is now calculated using the Glory calculation, which is a validated novel method providing better accuracy than the Friedewald equation in the estimation of LDL-C. Bradly SS et al. SERAFIN. 2013;310(19): 0207-9477 (http://education.HellHouse Media/faq/FAQ16 4) CHOL/HDLC RATIO 4.2 <5.0 (calc) NON HDL CHOLESTEROL 165 <130 mg/dL (calc) For patients with diabetes plus 1 major ASCVD risk factor, treating to a non-HDL-C goal of <100 mg/dL (LDL-C of <70 mg/dL) is considered a therapeutic option. COMPREHENSIVE METABOLIC JESSI Lester ([id number]) Reviewed date:05/28/2024 12:58:49 PM Interpretation: Performing Lab:CB, [facility] [address], [facility] HospitalXcumIM[address] Alessio Epperson Notes/Report: NON-FASTING; NON-FASTING; NON-FASTING FASTING:YES FASTING: YES GLUCOSE 84 65-99 mg/dL Fasting reference interval UREA NITROGEN (BUN) 10 7-25 mg/dL CREATININE 0.73 0.50-1.03 mg/dL EGFR 98 > OR = 60 mL/min/1.73m2 BUN/CREATININE RATIO SEE NOTE: 6-22 (calc) Not Reported: BUN and Creatinine are within reference range. SODIUM 138 135-146 mmol/L POTASSIUM 4.0 3.5-5.3 mmol/L CHLORIDE 101 98-110 mmol/L CARBON DIOXIDE 26 20-32 mmol/L CALCIUM 10.0 8.6-10.4 mg/dL PROTEIN, TOTAL 7.6 6.1-8.1 g/dL ALBUMIN 4.3 3.6-5.1 g/dL GLOBULIN 3.3 1.9-3.7 g/dL (calc) ALBUMIN/GLOBULIN RATIO 1.3 1.0-2.5 (calc) BILIRUBIN, TOTAL 1.5 0.2-1.2 mg/dL ALKALINE PHOSPHATASE 89 37-153 U/L AST 24 10-35 U/L ALT 25 6-29 U/L Medications Medication SIG (Take, Route, Frequency, Duration) Notes Start Date End Date Status Rosuvastatin Calcium 20 MG 1 tab(s) oral ly once a day at bedtime for 30 days Active Levocetirizine Dihydrochloride 5 MG 1 tab(s) orally once a day (in the evening) for 30 day(s) 05/09/2022 Active Montelukast Sodium 10 MG 1 tab(s) orally once a day at bedtime for 30 day(s) 09/14/2022 Active Wegovy 1.7 MG/0.75ML 0.75 mL Subcutaneou s once a week for 28 days Active Flonase Allergy Relief 50 MCG/ACT as directed in each nostril once a day for 30 day(s) prn 05/09/2022 Active Propranolol HCl 20 MG 1 tab(s) orally 2 times a day for 30 day(s) Active valACYclovir HCl 1 GM 2 tab(s) orally 2 times a day for 1 days prn 05/09/2022 Active Problems Problem Type SNOMED Code ICD Code Onset Dates Problem Status W/U Status Risk Notes Problem 310297008 Other viral agen ts as the cause of diseases classified elsewhere (B97.89) Active confirmed Problem 174635073 Mixed hyperlipid emia (E78.2) Active confirmed Problem 43886469 Generalized anxi ety disorder (F41.1) Active confirmed Problem 490353221 Psychophysiologi c insomnia (F51.04) Active confirmed Problem 233936801 Chronic serous o titis media, bilateral (H65.23) Active confirmed Problem 385358296 Acute upper respiratory infection, unspecified (J06.9) Active confirmed Problem 788326895 Depression with anxiety (F41.8) Active confirmed Problem 31040506 Vitamin D defici ency (E55.9) Active confirmed Problem 75809355 Essential hypertension (I10) Active confirmed Problem 695747460 Seasonal allergi es (J30.2) Active confirmed Problem 813545010 BMI 31.0-31.9,ad ult (Z68.31) Active confirmed Problem 339138974 BMI 32.0-32.9,ad ult (Z68.32) Active confirmed Problem 194473987 Obesity (BMI 30- 39.9) (E66.9) Active confirmed Problem 087824857 Insomnia, unspec ified type (G47.00) Active confirmed Problem 05835270 Vasculitis (I77.6) Active confirmed Problem 253280743 Pre-hypertension (R03.0) Active confirmed Vital Signs Heart Rate 80 /min 12/02/2024 Temperature 97.9 degrees Fahrenheit 12/02/2024 Blood pressure diastolic 90 mm Hg 12/02/2024 Height 5 ft 2 in in 12/02/2024 Blood pressure systolic 132 mm Hg 12/02/2024 Weight 144.2 lbs 12/02/2024 BMI 26.37 kg/m2 12/02/2024 Encounters Encounter Location Date Provider Diagnosis [facility] [address] [facility] [address] [place] [address] 05/26/2024 Gregory Besson [facility] [address] [facility] [address] [place] [address] 11/08/2024 Provider Migration Fever blister B00.1 and Pre-hypertension R03.0 [facility] [address] [facility] [address] [place] [address] 12/17/2024 Yaneth Rossi [facility] [address] [facility] [address] [place] [address] 03/31/2024 Gregory Besson Pre-hypertension R03 .0 [facility] [address] [facility] [address] [place] [address] 04/14/2024 Gregory Besson Pre-hypertension R03 .0 and Depression with anxiety F41.8 [facility] [address] [facility] [address] [place] [address] 04/22/2024 Yaneth Rossi Routine medical exam Z00.00 ; Mixed hyperlipidemia E78.2 ; BMI 26.0-26.9,adult Z68.26 ; Generalized anxiety disorder F41.1 ; Essential hypertension I10 and Vitamin D deficiency E55.9 [facility] [address] [facility] [address] [place] [address] 12/02/2024 Yaneth McNees Mixed hyperlipidemia E78.2 ; Routine medical exam Z00.00 ; Generalized anxiety disorder F41.1 ; Essential hypertension I10 ; Vitamin D deficiency E55.9 ; Visit for screening mammogram Z12.31 and BMI 26.0-26.9,adult Z68.26 [facility] [address] [place] [address] 02/15/2024 Gregory Besson BMI 28.0-28.9,adult Z68.28 [facility] [address] [place] [address] 03/07/2024 Yaneth McNees BMI 28.0-28.9,adult Z68.28 [facility] [address] [place] [address] 03/17/2024 Yaneth McNees BMI 28.0-28.9,adult Z68.28 [facility] [address] [place] [address] 04/22/2024 Yaneth McNees [facility] [address] [place] [address] 05/28/2024 Yaneth McNees Mixed hyperlipidemia E78.2 [facility] [place] [place] [address] [place] [address] 06/04/2024 Gregory Besson [facility] [address] [place] [address] 06/10/2024 Yaneth McNees [facility] [address] [place] [address] 06/10/2024 Gregory Besson [facility] [address] [place] [address] 07/23/2024 Gregory Besson [facility] [address] [place] [address] 08/05/2024 Gregory Besson [facility] [address] [place] [address] 09/18/2024 Yaneth McNees [facility] [address] [place] [address] 09/18/2024 Yaneth McNees [facility] [address] [facility] [address] [place] [address] 09/18/2024 Yaneth McNees [facility] [place] [address] [place] [address] 09/19/2024 Yaneth ServandoNees Fever blister B00.1 [facility] [place] [address] [place] [address] 11/17/2024 Gregory Besson [facility] [address] [place] [address] 11/25/2024 Gregory Besson [facility] [address] [place] [address] 12/02/2024 Yaneth McNees [facility] [address] [place] [address] 12/02/2024 Yaneth ServandoNees Assessments Encounter Date Diagnosis (ICD Code) Assessment Notes Treatment Notes Treatment Clinical Notes Section Notes 11/08/2024 Fever blister (ICD-10 - B00.1) 11/08/2024 Pre-hypertension (ICD-10 - R03.0) 12/02/2024 Mixed hyperlipidemia (ICD-10 - E78.2) Doing well on statin. Will check fasting lipid panel and treat as indicated 12/02/2024 Routine medical exam (ICD-10 - Z00.00) C-scope UTD mammogram due, will arrange No further paps Immunizations UTD 04/14/2024 Depression with anxiety (ICD-10 - F41.8) 04/14/2024 Pre-hypertension (ICD-10 - R03.0) Overall doing well. Dose of propranolol seems good for her. Seems to have blocked a lot of unnecessary adrenaline surges that have been emotionally counterproducti ve. She will continue follow-up for her semaglutide injections. 03/31/2024 Pre-hypertension (ICD-10 - R03.0) Given palpitations, overlying anxiety and elevated blood pressure will start low-dose propranolol. Close follow-up 1 to 2 weeks. Discussed dosing titration up or down for fatigue or bradycardia symptoms 09/19/2024 Fever blister (ICD-10 - B00.1) 05/28/2024 Mixed hyperlipidemia (ICD-10 - E78.2) 04/22/2024 Mixed hyperlipidemia (ICD-10 - E78.2) Doing well on statin. Will check fasting lipid panel and treat as indicated 04/22/2024 Routine medical exam (ICD-10 - Z00.00) 03/17/2024 BMI 28.0-28.9,adult (ICD-10 - Z68.28) 03/07/2024 BMI 28.0-28.9,adult (ICD-10 - Z68.28) 02/15/2024 BMI 28.0-28.9,adult (ICD-10 - Z68.28) 04/22/2024 BMI 26.0-26.9,adult (ICD-10 - Z68.26) Excellent weight loss on GLP-1. Continue diet, exercise. 12/02/2024 Generalized anxiety disorder (ICD-10 - F41.1) Well controlled on propranolol. No changes today 12/02/2024 Essential hypertension (ICD-10 - I10) Blood pressure at goal on beta michoacano 04/22/2024 Generalized anxiety disorder (ICD-10 - F41.1) Well controlled on propranolol. No changes today 04/22/2024 Essential hypertension (ICD-10 - I10) Blood pressure at goal on beta michoacano 12/02/2024 Vitamin D deficiency (ICD-10 - E55.9) On replacement, will check vit d level and treat as indicated. 12/02/2024 Visit for screening mammogram (ICD-10 - Z12.31) 04/22/2024 Vitamin D deficiency (ICD-10 - E55.9) On replacement, will check vit d level and treat as indicated. 12/02/2024 BMI 26.0-26.9,adult (ICD-10 - Z68.26) Good weight loss on GLP-1. Discussed continuing for maintenance. Discussed need for exercise and weight loss maintenance Plan Of Treatment Pending Test Test Name Order Date X ray : Knees, Bilateral, A-P Standing 0 03/27/2009 MRI : Head, Without Contrast 04/08/2014 Physical Therapy 12/06/2011 Physical Therapy 01/25/2012 Physical Therapy 03/02/2009 Occupational Therapy : Eval & Treatment 04/08/2020 H-CBC with AUTO DIFF 09/25/2008 H-HELICOBACTER PYLORI (SCREEN) 9 H-CMP 11/23/2015 H-LIPID PANEL 11/23/2015 H-TSH 11/23/2015 Insurance Providers Payer Name Payer Address Payer Phone Subscriber Number Group Number Insured Name Patient Relationship to Insured Coverage Start Date Coverage End Date [facility] [address] [place] [address] [id number] Brynn De Los Santos Self - patient is the insured Medications Administered Medication Instructions Date of Administration Dosage Notes Ceftriaxone 500 12/01/2014 500 Ceftriaxone 500 03/13/2022 500 mg Dexamethasone 4mg Injection 10/22/2021 4 mg Dexamethasone 4mg Injection 03/13/2022 4 mg Dexamethasone 4mg Injection 05/09/2022 4 mg Triamcinolone Acetonide 40mg Injection 04/03/2018 1 mL Kenalog 12/01/2014 1 mg Kenalog 09/06/2015 1 mL Promethazine HCL 04/10/2014 Medical (General) History Medical History History ICD Code anxiety hormone replacement therapy 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
--- OUTSIDE RECORDS SUMMARY | 2025-01-18 23:34 | XMS_ITS ---
Author Organization Unknown Medications Medication Instructions Effective Dates (start - stop) Status cefdinir 300 MG Oral Capsule 10-10-17:00:00.000+00:0 0 - Completed doxycycline hyclate 100 MG O ral Capsule [id number]:00:00.000+00:0 0 - Completed fluticasone propionate 0.05 MG/ACTUAT Metered Dose Nasal [place] 9177-03-20X57:00:00 .000+00:0 0 - Completed prednisone 20 MG Oral Tablet 10-06-22:00:00.000+00:0 0 - Completed dexamethasone 4 MG Oral Tablet [id number]:00:00.000+00:0 0 - Completed prednisone 20 MG Oral Tablet 10-10-17:00:00.000+00:0 0 - Completed prednisone 20 MG Oral Tablet 09-17-20:00:00.000+00:0 0 - Completed cefdinir 300 MG Oral Capsule 09-17-20:00:00.000+00:0 0 - Completed cefdinir 300 MG Oral Capsule 10-05-08:00:00.000+00:0 0 - Completed ofloxacin 3 MG/ML Otic Solution [id number]:00:00.000+00:0 0 - Completed - [id number]:00 :00.000+00:0 0 - Completed montelukast 10 MG Oral Tablet 27-10-15:00:00.000+00:0 0 - Completed levocetirizine dihydrochlori de 5 MG Oral Tablet [id number]:00:00.000+00:0 0 - Completed valacyclovir 1000 MG Oral Tablet [id number]:00:00.000+00:0 0 - Completed levocetirizine dihydrochlori de 5 MG Oral Tablet [id number]:00:00.000+00:0 0 - Completed montelukast 10 MG Oral Tablet 27-11-19:00:00.000+00:0 0 - Completed montelukast 10 MG Oral Tablet 25-02-23:00:00.000+00:0 0 - Completed atorvastatin 20 MG Oral Tablet [id number]:00:00.000+00:0 0 - Completed atorvastatin 20 MG Oral Tablet 2 [id number]:00:00.000+00:0 0 - Completed atorvastatin 20 MG Oral Tablet [id number]:00:00.000+00:0 0 - Completed montelukast 10 MG Oral Tablet 28-09-08:00:00.000+00:0 0 - Completed 12 HR loratadine 5 MG / pseudoephedrine sulfate 120 MG Extended Release Oral Tablet [id number]:00:00.000+0 0:0 0 - Completed Patient Care team information Name Category Status Period Participants - - Proposed period not known -
--- OUTSIDE RECORDS SUMMARY | 2025-01-18 23:34 | XMS_ITS | Clinical Summary ---
Author Organization [facility] Address [address] [place] [address] Care Team Providers Care Service Administrator Name Role Phone Unavailable Primary Care Provider Unavailabl e Social History Tobacco Use Types Packs/Day Years Used Date Smoking Tobacco: Never Assessed Comments Unknown Sex and Gender Information Value Date Recorded Sex Assigned at Not on file Legal Sex Female 8:13 AM EDT Gender Identity Not on file Sexual Orientation Not on file Plan of Treatment Not on file
--- NOTE | 2025-01-18 23:36 | CT_ITS ---
PROCEDURE INFORMATION: Exam: CT Chest Without Contrast; Diagnostic Exam date and time: 01/19/2025 12:22 AM Age: 54 years old Clinical indication: Other: Low L posterior rib pain; Additional info: 3d ago injury, low L posterior rib pain, ttp TECHNIQUE: Imaging protocol: Diagnostic computed tomography of the chest without contrast. Radiation optimization: All CT scans at this facility use at least one of these dose optimization techniques: automated exposure control; mA and/or kV adjustment per patient size (includes targeted exams where dose is matched to clinical indication); or iterative reconstruction. COMPARISON: No relevant prior studies available. FINDINGS: Lungs: Unremarkable. No consolidation. No masses. Pleural spaces: Unremarkable. No pneumothorax. No pleural effusion. Heart: Unremarkable. No cardiomegaly. No pericardial effusion. Coronary arteries: No coronary artery calcification. Lymph nodes: Unremarkable. No enlarged lymph nodes. Vasculature: Unremarkable. No aortic aneurysm. Bones/joints: No acute fracture. T12 vertebral body hemangioma. Soft tissues: Unremarkable. IMPRESSION: No acute findings.
[2025-01-18 23:39] VITALS: BP 189/109; PULSE 81; RESP 20; TEMP 36.5; O2SAT 95; BMI 25.7
[2025-01-18 23:45] VITALS: BP 189/109; PULSE 77; O2SAT 98
[2025-01-18] MEDS: METHOCARBAMOL 500MG TABLET 500 MG PO (23:54)
[2025-01-18] MEDS: OXYCODONE 5MG IMMEDIATE RELEASE TABLET 5 MG PO (23:55)
[2025-01-18] MEDS: ONDANSETRON 4MG ODT 4 MG SL (23:55)
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
[2025-01-19 00:30] VITALS: BP 165/99; PULSE 69; O2SAT 96
[2025-01-19 01:17] VITALS: BP 152/95; PULSE 88; RESP 20; TEMP 36.5; O2SAT 98
== END 2025-01-19 01:17 | disposition home or self-care (01) ==
PROVIDERS: Emergency Provider Emergency Medicine; PCP Internal Medicine Adolescent Medicine
DX: M62.830 Muscle spasm of back (principal); W51.XXXA Accidental striking against or bumped into by another person, initial encounter
CPT/HCPCS: 71250; 99284; Q0162